=== PATIENT | male | born 1980 | race Caucasian/White ===

== ENCOUNTER 2024-11-30 18:59 | Emergency (ER) | payer OTHER, SELFPAY ==
[2024-11-30 19:08] VITALS: BP 137/91; PULSE 64; RESP 14; TEMP 36.6; O2SAT 96; BMI 29.9
--- NOTE | 2024-11-30 19:20 | ED_ITS ---
HPI - Extremity Injury (Upper) General Chief Complaint: Extremity Injury, Upper Stated Complaint: Something shoved up fingernail-needs tetanus Time Seen by Provider: 11/30/24 19:16 Source: patient Mode of arrival: Ambulatory History of Present Illness HPI narrative: Patient is a 44-year-old male presenting for fingernail injury, states that he was cleaning a scale it that had old food and something got lodged between his finger in his finger nail, states unsure of tetanus vaccination, not on any blood thinners, he denies any other injuries Related Data Previous Rx's ?Medication ?Instructions ?Recorded cephalexin 500 mg capsule 500 mg PO Q6H 5 days #20 cap s 11/30/24 Allergies Allergy/AdvReac Type Severity Reaction Status Date / Time No Known Drug Allergies Allergy Verified 11/30/24 19:08 Review of Systems Review of Systems Narrative: General: Denies fever, chills, weight loss HEENT: Denies headache, eye drainage, eye irritation, head trauma, sore throat, voice change Cardiovascular: Denies any chest pain, palpitations, tachycardia Respiratory: Denies any shortness of breath, cough, wheeze, stridor GI/: Denies any abdominal pain, nausea, vomiting, diarrhea, bright red blood per rectum, melanotic stools, urinary frequency, urinary retention, dysuria, hematuria MSK: Denies any joint pain, muscle pains, swelling Skin: Cut/pain to the right index finger Neuro: Denies any headache, lightheadedness, dizziness, fainting, weakness Psych: Denies SI/HI Patient History tobacco type: smokeless tobacco Exam Narrative Exam Narrative: General: Cooperative, well-developed, not in acute distress HEENT: Normocephalic, atraumatic, PERRLA, normal sclera, eyelids normal Neck: Active full range of motion, atraumatic Chest: Normal to inspection, negative crepitus, no overlying erythema ecchymosis Respiratory: Normal respiratory effort, not in acute respiratory distress, clear to auscultation bilaterally negative cough, wheeze, tachypnea, rhonchi, rales Cardiology: Regular rate rhythm negative gallop, murmur, rubs GI/: No tenderness to palpation, soft, non rigid, normal to inspection, exam deferred MSK: Full active range of motion in all 4 extremities, atraumatic, no tenderness to palpation of any bony prominences Skin: Small dried blood noted just under the nail of the right index finger, no foreign bodies noted, no indication for laceration repair Neuro: Alert awake oriented x3, moves all 4 extremities spontaneously, cranial nerves intact, able to answer all questions appropriately follows commands appropriately Psych: Cooperative, negative suicidal or homicidal ideations Initial Vital Signs Initial Vital Signs: Vital Signs Temperature 97.9 F 11/30/24 19:08 Pulse Rate 64 11/30/24 19:08 Respiratory Rate 14 11/30/24 19:08 Blood Pressure 137/91 H 11/30/24 19:08 Pulse Oximetry 96 11/30/24 19:08 Oxygen Delivery Method Room Air 11/30/24 19:08 Course Vital Signs Vital signs: Vital Signs - 8 hr 11/30/24 19:08 Temperature 97.9 F Pulse Rate 64 Respiratory Rate 14 Blood Pressure 137/91 H Pulse Oximetry 96 Oxygen Delivery Method Room Air MDM - Extremity Injury (Upper) Differential Diagnosis Differential diagnosis: Likely other (Laceration, avulsion, abrasion) MDM Narrative Medical decision making narrative: Patient is a 44-year-old male without any significant past medical history comes into the ED from home for evaluation of injury to his right index finger, he states that earlier today he was cleaning a old scale it, states that something got stuck underneath his right finger had some pain, on exam patient with dried blood under the tip of the nail bed, no foreign bodies, no indication for laceration repair, patient had tetanus updated and will be started on prophylactic antibiotic 1st dose was given here, he was given strict return precautions he verbalized understanding of this and agrees to being discharged home with outpatient follow up Discharge Plan Departure Patient Disposition: Home Clinical Impression: Abrasion of finger Activity Restrictions/Additional Instructions: You may use topical antibiotics to your injury Please read the discharge instructions sheet carefully and bring all papers to all doctor follow-up visits, as it may contain information that your doctor may want to see. Disease processes change and evolve, if your symptoms worsen or if you develop any new symptoms that are concerning to you please return for evaluation. Your evaluation today does not show any evidence of any life- threatening/serious illnesses requiring admission to the hospital or surgery. Please follow-up with your doctor for re-evaluation in approximately 1 day. Seek immediate medical attention for any worrisome symptoms. *If you do not have a primary care provider please contact the [facility] Resource line at [phone]. They will ask some questions about your medical history and help get you set up with a doctor in the community. Prescriptions: New cephalexin 500 mg capsule 500 mg PO Q6H 5 Days Qty: 20 0RF Stand Alone Forms: Patient Portal/API
[2024-11-30] MEDS: TET,DIPH,PERTUSS(ACELL),VAC/PF 0.5 ML SYRINGE IM (19:50)
[2024-11-30 19:57] VITALS: BP 133/78; PULSE 68; RESP 19; TEMP 36.9; O2SAT 98
== END 2024-11-30 19:57 | disposition home or self-care (01) ==
PROVIDERS: Emergency Provider Student in an Organized Health Care Education/Training Program
DX: S60.410A Abrasion of right index finger, initial encounter (principal); X58.XXXA Exposure to other specified factors, initial encounter; Z23 Encounter for immunization
CPT/HCPCS: 90471; 99283; 90715